=== PATIENT | male | born 1985 | race Caucasian/White ===

== ENCOUNTER 2018-08-02 20:20 | Emergency (ER) | payer SELFPAY ==
[2018-08-02 20:38] VITALS: BP 142/82
--- NOTE | 2018-08-02 20:41 | ED Physician Documentation ---
Ear Complaints - HISTORIAN Historian: patient - HPI Stated Complaint: Left ear pain Chief Complaint: Ear Complaints Further Comments: yes (33 year old male patient presents with left ear pain which started this afternoon.) - ROS CONST: no problems CVS/RESP: none GI/: denies: black stools, nausea, vomiting, other MS/SKIN/LYMPH: none All Systems -: Yes - PAST HX Past History: none Allergies/Adverse Reactions: Allergies Allergy/AdvReac Type Severity Reaction Status Date / Time No Known Allergies Allergy Verified 08/02/18 20:38 Home Medications: Ambulatory Orders Medication Instructions Recorded Azithromycin [Zithromax] 250 mg PO DAILY #4 tablet 08/02/18 - SOCIAL HX Smoking History: non-smoker - FAMILY HX Family History: Yes - VITAL SIGNS Vital Signs: Vital Signs Temp Pulse Resp BP Pulse Ox 97.4 F L 68 16 142/82 96 08/02/18 20:21 08/02/18 20:21 08/02/18 20:21 08/02/18 20:21 08/02/18 20:21 - REVIEWED ASSESSMENTS Nursing Assessment Reviewed: Yes Vitals Reviewed: Yes Ear Complaint Physical Exam - EXAM General Appearance: no acute distress, alert Ear: auricle nml, gambling monitor.canal nml, left, other (Left TM with erythema; pain with exam; exudate noted in canal.) Resp/CVS: chest non-tender, breath sounds nml, heart sounds nml Abdomen: non-tender, no organomegaly Skin: nml color, no skin rash Neuro/Psych: oriented x3, mood/affect nml Discharge Clincal Impression: Left otitis media Qualifiers: Otitis media type: suppurative Chronicity: acute Recurrence: non-recurrent Spontaneous tympanic membrane rupture: without spontaneous rupture Qualified Code(s): H66.002 - Acute suppurative otitis media without spontaneous rupture of ear drum, left ear Prescriptions: Azithromycin [Zithromax] 250 mg PO DAILY #4 tablet Referrals: Primary Doctor,No [Primary Care Provider] - 2 Days Additional Instructions: [employer] your antibiotic and start it tomorrow. Tylenol or ibuprofen as needed for pain. Place a cotton ball in the ear when you shower to keep the canal dry. Do not put anything into your ear. Condition: Stable Disposition: 01 HOME, SELF-CARE Decision to Admit: NO Decision Time: 20:39
[2018-08-02] MEDS: IBUPROFEN 400 MG TABLET PO ONE (20:49)
[2018-08-02] MEDS: AZITHROMYCIN 250 MG TABLET PO ONE (20:49)
== END 2018-08-02 20:50 | disposition home or self-care (01) ==
LOC: ED 20:20
DX: H66.002 Acute suppurative otitis media without spontaneous rupture of ear drum, left ear (principal)
CPT/HCPCS: 99283

== ENCOUNTER 2018-08-07 11:26 | Emergency (ER) | payer SELFPAY ==
--- NOTE | 2018-08-07 11:29 | ED Physician Documentation ---
Ear Complaints - HISTORIAN Historian: patient - HPI Stated Complaint: left ear pain x 1 week failed x 1 round antibotics Chief Complaint: Ear Complaints Timing: still present Location of Pain: L ear Severity: moderate Associated Symptoms: dull pain, aching, discharge, jaw pain, headache. denies: fever, chills, sharp pain, foreign body Further Comments: yes (he states he was here a few days ago and was treated with azithromycin for otitis media and he did feel better x 1 day (wed) and then the pain started back and has noted some brownish drainage from the ear. Denies any fever. He takes naproxen twice daily previously but does not feel this is helping the pain any.) - ROS CONST: no problems NEURO/PSYCH: none - PAST HX Past History: none Allergies/Adverse Reactions: Allergies Allergy/AdvReac Type Severity Reaction Status Date / Time No Known Allergies Allergy Verified 08/07/18 12:01 Home Medications: Ambulatory Orders Medication Instructions Recorded Azithromycin [Zithromax] 250 mg PO DAILY #4 tablet 08/02/18 - SOCIAL HX Smoking History: chew Alcohol Use: rarely Drug Use: none - FAMILY HX Family History: No - VITAL SIGNS Vital Signs: Vital Signs Temp Pulse Resp BP Pulse Ox 142/82 08/02/18 20:52 - REVIEWED ASSESSMENTS Nursing Assessment Reviewed: Yes Vitals Reviewed: Yes Ear Complaint Physical Exam - EXAM General Appearance: no acute distress, alert Ear: auricle nml, internet marketer.canal nml, pain w movement of auricl, left, cerumen, loss of landmarks, bulging of TM. No: foreign body Mouth/Throat: lips nml Nose: nml inspection Head/Neck: atraumatic, neck nml inspection Eye: eyes nml inspection Resp/CVS: chest non-tender, breath sounds nml, heart sounds nml, no resp. distress, lungs clear, reg. rate & rhythm Abdomen: non-tender Skin: nml color Neuro/Psych: oriented x3 Discharge Clincal Impression: Left otitis media Qualifiers: Otitis media type: unspecified Qualified Code(s): H66.92 - Otitis media, unspecified, left ear Referrals: Primary Doctor,No [Primary Care Provider] - 2 Days Comments: 1. Cefdinir 300 mg take 1 by mouth twice daily 2. Ciprodex use 3 drops in left ear three times per day 3. Warm pack as needed for pain relief 4. Follow up with PCP in 2 days 5. Return to ER for any increasing concerns Condition: Stable Disposition: 01 HOME, SELF-CARE Decision to Admit: NO Date of Decison to Admit: 08/07/18 Decision Time: 11:50
[2018-08-07 12:03] VITALS: BP 136/75
== END 2018-08-07 11:54 | disposition home or self-care (01) ==
LOC: ED 11:26
DX: H66.92 Otitis media, unspecified, left ear (principal); Z72.0 Tobacco use
CPT/HCPCS: 99282; 99283